=== PATIENT | male | born 1955 | race Caucasian/White ===

== ENCOUNTER 2016-11-25 08:19 | Emergency (ER) | payer OTHER ==
[2016-11-25 08:36] VITALS: RESP 16; O2SAT 95
--- NOTE | 2016-11-25 08:54 | CPEKG ---
Heart Rate: 57 RR Interval: 1053 P-R Interval: 196 QRSD Interval: 104 QT Interval: 448 QTC Interval: 437 P [place]: 34 QRS [place]: 2 T Wave [place]: 34 EKG Severity - NORMAL ECG - EKG Impression: SINUS RHYTHM Electronically Signed By: Romeo Montejo 25-Nov-2016 09:58:20
--- NOTE | 2016-11-25 09:00 | UCPHY ---
H & P Patient Type: New Chief Complaint Nursing Narrative: BL arm stiffness and soreness, 2 weeks, nausea, lighheadness. Time Seen by Provider: 11/25/16 08:41 HPI/ROS: 2 weeks ago while driving back from [place] this patient noticed a subtle arm ache bilaterally left more than right like over exerting muscles but I had. Since then he has had intermittent recurrent symptoms at times lasting up to hours. Peak intensity 6/10 discomfort, currently 3/10. He also reports intermittent bilateral hand and foot paresthesias. He also reports lightheadedness. He notes no exacerbating factors for symptoms except that the lightheadedness improves when he sits down. He has never had these symptoms before. He notes no other exacerbating factors per ROS: No high fevers or chills. No URI symptoms or other HEENT complaints. No headache. Symptoms do not worsen with head movement. Neuro: No focal numbness or weakness. Pulmonary: No shortness of breath. No coughing. Cardiovascular: No heart palpitations. No exertional component to his symptoms. No lower extremity swelling. GI: Does report onset of nausea this morning. No vomiting. Normal bowel movements. : No complaints integumentary: No skin rash or other complaints 10 point ROS is otherwise negative. Source: Patient Exam Limitations: No limitations - Medical/Surgical History PMH: Otherwise healthy Hx Asthma: No Hx Chronic Respiratory Disease: No Hx Diabetes: No Hx Cardiac Disease: No Hx Renal Disease: No Hx Cirrhosis: No Hx Alcoholism: No Hx HIV/AIDS: No Hx Splenectomy or Spleen Trauma: No Other PMH: none - Family History Significant Family History: No pertinent family hx - Social History Smoking Status: Never smoked Alcohol Use: None Drug Use: None - Physical Exam Exam: General Appearance: Alert, no distress. Eyes: Pupils equal and round no pallor or injection. ENT, Mouth: Mucous membranes moist. Respiratory: There are no retractions, lungs are clear to auscultation. Cardiovascular: Regular rate and rhythm. No murmur gallop or rub. No JVD. No peripheral edema. Gastrointestinal: Abdomen is soft and nontender, no masses, bowel sounds normal. Neurological: Alert with no focal deficits. Skin: Warm and dry, no rashes. Musculoskeletal: Neck is supple nontender. Extremities are symmetrical, full range of motion. Psychiatric: Mood and affect normal DIFFERENTIAL DIAGNOSIS: After history and physical exam differential diagnosis was considered for coronary syndrome, diabetic neuropathy, nonspecific neuropathy, vestibular disease, metabolic disarray, thyroid disease Constitutional: Initial Vital Signs Temperature (C) 36.8 C 11/25/16 08:30 Heart Rate 61 11/25/16 08:30 Respiratory Rate 16 11/25/16 08:30 Blood Pressure 148/81 H 11/25/16 08:30 O2 Sat (%) 95 11/25/16 08:30 O2 Delivery Mode Room Air Allergies/Adverse Reactions: No Known Allergies Allergy (Unverified 11/25/16 08:36) Home Medications: Medication Instructions Recorded Aspirin 81mg 11/07/10 Medical Decision Making - Diagnostics EKG Interpretation: 12 lead EKG performed at 8:52 a.m. reveals sinus rhythm at 57 Intervals normal [place] normal ST segments normal overall assessment: Normal EKG ED Course/Re-evaluation: Patient remained stable here without further complaints. The causes symptoms is unclear. On workup today there is no evidence of coronary syndrome, PE, metabolic disarray or other concerning findings. I did recommend that he follow up with Cardiology to have a stress test for further evaluation. He also understands the need to go the emergency department if he develops worsening of his symptoms. - Data Points Laboratory Results: Laboratory Results 11/25/16 09:00 11/25/16 09:00 11/25/16 11/25/16 11/25/16 09:00 09:00 09:00 WBC 5.87 10^3/uL 10^3/uL (3.80-9.50) RBC 4.52 10^6/uL 10^6/uL (4.40-6.38) Hgb 15.3 g/dL g/dL (13.7-17.5) Hct 41.8 % % (40.0-51.0) MCV 92.5 fL fL (81.5-99.8) MCH 33.8 pg pg (27.9-34.1) MCHC 36.6 g/dL g/dL (32.4-36.7) RDW 12.3 % % (11.5-15.2) Plt Count 229 10^3/uL 10^3/uL (150-400) MPV 9.6 fL fL (8.7-11.7) Neut % (Auto) 70.2 % % (39.3-74.2) Lymph % (Auto) 18.2 % % (15.0-45.0) [place] % (Auto) 7.5 % % (4.5-13.0) Eos % (Auto) 2.9 % % (0.6-7.6) Baso % (Auto) 1.0 % % (0.3-1.7) Nucleat RBC Rel Count 0.0 % % (0.0-0.2) Absolute Neuts (auto) 4.12 10^3/uL 10^3/uL (1.70-6.50) Absolute Lymphs (auto) 1.07 10^3/uL 10^3/uL (1.00-3.00) Absolute Monos (auto) 0.44 10^3/uL 10^3/uL (0.30-0.80) Absolute Eos (auto) 0.17 10^3/uL 10^3/uL (0.03-0.40) Absolute Basos (auto) 0.06 10^3/uL 10^3/uL (0.02-0.10) Absolute Nucleated RBC 0.00 10^3/uL 10^3/uL (0-0.01) Immature Gran % 0.2 % % (0.0-1.1) Immature Gran # 0.01 10^3/uL 10^3/uL (0.00-0.10) D-Dimer 0.34 ug/mLFEU ug/mLFEU (0.00-0.50) Sodium 143 mEq/L mEq/L (134-144) Potassium 4.3 mEq/L mEq/L (3.5-5.2) Chloride 108 mEq/L mEq/L (97-110) Carbon Dioxide 22 mEq/l mEq/l (22-31) Anion Gap 13 mEq/L mEq/L (8-16) BUN 17 mg/dL mg/dL (7-23) Creatinine 1.1 mg/dL mg/dL (0.7-1.3) Estimated GFR > 60 Glucose 91 mg/dL mg/dL (70-100) Calcium 9.1 mg/dL mg/dL (8.5-10.4) Total Bilirubin 0.9 mg/dL mg/dL (0.1-1.4) AST 23 IU/L IU/L (17-59) ALT 39 IU/L IU/L (21-72) Alkaline Phosphatase 62 IU/L IU/L (38-126) Troponin I < 0.012 ng/mL ng/mL (0-0.034) Total Protein 6.8 g/dL g/dL (6.3-8.2) Albumin 3.9 g/dL g/dL (3.5-5.0) TSH Pending Departure - Departure Disposition: Home, Routine, Self-Care Clinical Impression: Paresthesia of bilateral legs, Paresthesia of hand, bilateral Arm pain Qualifiers: Laterality: bilateral Qualified Code(s): M79.601 - Pain in right arm; M79.602 - Pain in left arm Condition: Good Instructions: Arm Pain (ED), Paresthesia (ED) Additional Instructions: Diagnoses: 1. Bilateral arm pain 2. 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 Go to the emergency department if he develops any significant worsening of her symptoms. Referrals: Allan Reyes MD [Primary Care Provider] - As per Instructions Minor Alan MD [Medical Doctor] - As per Instructions - PQRS PQRS Measurement: NA
[2016-11-25 09:09] LABS: % IMMATURE GRANULYOCYTES 0.2 % (0.0-1.1); ABSOLUTE IMMATURE GRANULOCYTES 0.01 10^3/uL (0.00-0.10); ADD DIFF? NO; ADD MORPH? NO; ADD SCAN? NO; ATYPICAL LYMPHOCYTE FLAG 0 (0-99); FRAGMENT RBC FLAG 0 (0-99); HEMATOCRIT 41.8 % (40.0-51.0); HEMOGLOBIN 15.3 g/dL (13.7-17.5); LEFT SHIFT FLG 0 (0-99); LIPEMIA HEMOLYSIS FLAG 90 (0-99); MEAN CELL HEMOGLOBIN 33.8 pg (27.9-34.1); MEAN CELL HEMOGLOBIN CONCENTR. 36.6 g/dL (32.4-36.7); MEAN CELL VOLUME 92.5 fL (81.5-99.8); MEAN PLATELET VOLUME 9.6 fL (8.7-11.7); PLATELET CLUMPS FLAG 0 (0-99); PLATELET COUNT 229 10^3/uL (150-400); RED BLOOD CELL COUNT 4.52 10^6/uL (4.40-6.38); RED CELL DISTRIBUTION WIDTH 12.3 % (11.5-15.2)
[2016-11-25 09:29] LABS: ALANINE AMINOTRANSFERASE 39 IU/L (21-72); ALBUMIN 3.9 g/dL (3.5-5.0); ALKALINE PHOSPHATASE 62 IU/L (38-126); ANION GAP 13 mEq/L (8-16); ASPARTATE AMINOTRANSFERASE 23 IU/L (17-59); BILIRUBIN,TOTAL 0.9 mg/dL (0.1-1.4); CALCIUM 9.1 mg/dL (8.5-10.4); CARBON DIOXIDE 22 mEq/l (22-31); CHLORIDE 108 mEq/L (97-110); CREATININE 1.1 mg/dL (0.7-1.3); GLOMERULAR FILTRATION RATE > 60; GLUCOSE 91 mg/dL (70-100); POTASSIUM 4.3 mEq/L (3.5-5.2); SODIUM 143 mEq/L (134-144); TOTAL PROTEIN 6.8 g/dL (6.3-8.2)
[2016-11-25 09:45] LABS: TROPONIN I < 0.012 ng/mL (0-0.034)
[2016-11-25 10:25] VITALS: BP 143/62; PULSE 53; TEMP 97.9
== END 2016-11-25 10:25 | disposition home or self-care (01) ==
LOC: CED 08:19
DX: M79.602 Pain in left arm (principal); M79.601 Pain in right arm; R20.9 Unspecified disturbances of skin sensation; R11.0 Nausea; R42 Dizziness and giddiness
CPT/HCPCS: 80053-PO; 84443-PO; 84484-PO; 85025-PO; 85378-PO; G0463-PO

== ENCOUNTER → 2016-12-15 | Outpatient (CLI) | payer OTHER ==
[~2016-12-15] MED LIST: GADOBUTROL 10 ML VIAL IVP ONE
== END ==
LOC: FIMAGING 08:51
PROVIDERS: ATTEND Family Medicine
DX: R51 Headache (principal); H81.09 Meniere's disease, unspecified ear; M85.2 Hyperostosis of skull
CPT/HCPCS: A9585

== ENCOUNTER 2018-12-12 20:01 | Emergency (ER) | payer OTHER ==
--- NOTE | 2018-12-12 21:11 | EDPHY ---
H & P Stated Complaint: Lighheaded since this afternoon,frontal [place] x2wks intermittent, nausea Time Seen by Provider: 12/12/18 20:45 HPI/ROS: CHIEF COMPLAINT: Frontal headache and almost passed out. HISTORY OF PRESENT ILLNESS: This 63-year-old obese male with history of well- controlled hypertension. He notes that for the last 2 weeks he has had a dull frontal headache that is non migratory, not expanded, and pretty much there most the time. There might be times where he does not really notice it much when he has to sufficiently distracted however it is never gone. It has not been so bad that he olive bothered to needed to take anything for it such as Tylenol ibuprofen. He does not recall any trauma. He is not want to get headaches. There has been no a pre existing URI or allergy type symptoms. Does not radiate. It is not been migratory. Is still in the same spot. Further, he has an episode of almost collapsing or passing out today. He has noted several times the last 2 weeks a sensation that he was going to continue standing up. He does not exhibit it is a swelling sensation about 2 or sense of vertigo but is vague nonetheless. He denies it to be a swirling sensation, though uses the term dizziness. Nor does it have a sense of feeling like he is quite to pass out or collapse such as he stands up quickly from a couch. This may occurring several times last 2 weeks though not every day. He has not noted any blood in stool. This afternoon which prompted to come here was that he felt like he was about to go to the ground while working in the garage cleaning some parts for the motorcycle that he was reconstructing. He felt like he was about to collapse and went to go sit down in a chair to so as to catch himself. He did not fall to the ground at this time nor in the past. He specific denies any sweating or sense of nausea at the time. Furthermore there is no palpitation or sense of his heart racing or chest discomfort. REVIEW OF SYSTEMS: Constitutional: No fever, no chills. Eyes: No discharge. No diplopia ENT: No sore throat. Cardiovascular: No chest pain, no palpitations. Respiratory: No cough, shortness of breath, or wheezing. Gastrointestinal: No Nausea, vomiting, abdominal pain or diarrhea Genitourinary: No hematuria or frequency. Musculoskeletal: No back pain. Skin: No rashes. Neurological: No headache. A 10 system review of systems was performed and is negative except for the noted findings in the HPI. Source: Patient Exam Limitations: No limitations - Medical/Surgical History Hx Asthma: No Hx Chronic Respiratory Disease: No Hx Diabetes: No Hx Cardiac Disease: No Hx Renal Disease: No Hx Cirrhosis: No Hx Alcoholism: No Hx HIV/AIDS: No Hx Splenectomy or Spleen Trauma: No Other PMH: Med hx-htn. Surg-tonsilectomy - Social History Smoking Status: Never smoked Alcohol Use: None Drug Use: None - Physical Exam Exam: General Appearance: Alert, no distress. Afebrile. Normal phonation. No respiratory distress. Eyes: Pupils equal and round no pallor or injection. No icterus ENT, Mouth: Mucous membranes moist slightly dry moderately dry Pharynx without erythema or exudate. TM Clear. Neck: No adenopathy. Supple. No JVD. Trachea in midline. Respiratory: There are no retractions, lungs are clear to auscultation. Cardiovascular: Regular rate and rhythm, without murmur. Abdomen: Soft and nontender, no masses, bowel sounds normal. . Neurological: Ox3. No motor weakness. Sensation intact. Gait nl. He has normal finger to nose and heel to cates. He has no troubles with rapid altering movements. His Barnay-Test is negative, though he has some end nystagmus as would be expected. I am unable to reproduce symptoms. Skin: Warm and dry, no rashes. Musculoskeletal: No joint swelling. Extremities: No edema. Homans sign negative. No cords. Psychiatric: Normal affect. Patient is oriented X 3. There is no agitation Constitutional: Initial Vital Signs Temperature (C) 36.6 C 12/12/18 20:25 Heart Rate 85 12/12/18 20:25 Respiratory Rate 16 12/12/18 20:25 Blood Pressure 126/89 H 12/12/18 20:25 O2 Sat (%) 94 12/12/18 20:25 O2 Delivery Mode Room Air Allergies/Adverse Reactions: No Known Allergies Allergy (Verified 12/12/18 20:23) Home Medications: Medication Instructions Recorded Aspirin 81mg 11/07/10 Losartan Potassium 12/12/18 Medical Decision Making - Diagnostics EKG Interpretation: EKG: Interpreted by me contemporaneously. Rhythm: Normal sinus rhythm. Heart rate 68 QTc 442 QRS: Early transition of the QRS complex in lead V2. STT segment: normal T Waves: Normal Q waves none Summary: Early transition of the QRS complex in V2 to suggest right ventricular hypertrophy. No signs of ischemia. No signs of pre-excitation ED Course/Re-evaluation: The patient remained clinically stable way up being here on the monitor. Laboratory studies include the following: CBC-normal Kidney function-normal Troponin normal Whereas I am able to compare his basic to that of the laboratory studies that he presented from December 05, this laboratory panel did not include a CBC. I had the opportunity is cusp the case with Dr. Grace, admitting physician at the [facility]. He recommends that the patient be given the option to go home or be admitted. He notes that the likelihood of something serious go on low risk case such as this is less than 2%.. I then visit with the patient discussed these options with him regarding admission versus discharge and have an outpatient follow-up. He would prefer the latter. We did discuss the specific risks. Differential Diagnosis: Diagnostic considerations include, but are not limited to, the following, 5this represents a partial list of diagnoses considered These considerations are based on history, physical exam, past history, reassessment and diagnostic testing: Cardiac syncope, Tejeda Ambrocio, tachy dysrhythmias, vertigo, inner ear dysfunction. - Data Points Point of Care Test Results: CBC CBC Collection Date 12/12/18 CBC Collection Time 21:55 WBC 7 RBC 4.11 HGB 14.1 HCT 39.1 PLT 201 Neut # 4.57 Neut 65.3 LYMPH # 1.57 LYMPH 22.4 MCV 95.1 Chemistry 12/12/18 12/12/18 22:15 22:13 POC Sodium 143 mEq/L mEq/L (135-145) POC Potassium 3.6 mEq/L mEq/L (3.3-5.0) POC Chloride 105.0 mEq/L mEq/L (97-110) POC Total CO2 25 mEq/L mEq/L (22-31) POC BUN 20 mg/dL mg/dL (7-23) POC Creatinine 1.2 mg/dL mg/dL (0.7-1.3) POC Glucose 109 mg/dL H mg/dL (70-100) POC Calcium 9.4 mg/dL mg/dL (8.5-10.4) POC Troponin I 0.01 ng/mL ng/mL (0.00-0.08) Departure - Departure Disposition: Home, Routine, Self-Care Clinical Impression: Near syncope Condition: Good Instructions: Syncope (ED) Additional Instructions: Call your family doctor in 2 days time to arrange for follow-up. In the meantime her not to do anything strenuous or them I put him position should this reoccur that she get hurt. This includes driving a car, climbing ladders, riding a bike, swimming etc. Referrals: Allan Reyes MD [Primary Care Provider] - As per Instructions
[2018-12-13 00:05] VITALS: BP 136/67
--- NOTE | 2018-12-13 00:45 | CPEKG ---
Test Reason : OPEN Blood Pressure : / mmHG Vent. Rate : 068 BPM Atrial Rate : 068 BPM P-R Int : 192 ms QRS Dur : 106 ms QT Int : 415 ms P-R-T Axes : 037 002 034 degrees QTc Int : 442 ms Sinus rhythm Abnormal R-wave progression, early transition Confirmed by Spike Ellison ([id number]) on 12/13/2018 12:44:48 AM Referred By: Spike Ellison Confirmed By:Spike Ellison
== END 2018-12-12 23:35 | disposition home or self-care (01) ==
LOC: CED 20:01
DX: R55 Syncope and collapse (principal); R51 Headache; R11.0 Nausea
CPT/HCPCS: 70450-PO; 71046-PO; 80048-ER; 84484-ER; 85025-QW-ER; 99285-ER